=== PATIENT | female | born 1990 | race Caucasian/White ===

== ENCOUNTER 2024-01-27 16:02 | Emergency (ER) | payer OTHER, SELFPAY ==
--- NOTE | 2024-01-27 16:22 | ED.URI ---
HPI - URI/Sore Throat General Chief Complaint: Upper Respiratory Infection Stated Complaint: cough Time Seen by Provider: 01/27/24 16:22 Source: patient Mode of arrival: ambulatory Limitations: no limitations History of Present Illness HPI Narrative: 33-year-old female presents with cough for approximately 2 weeks. Patient reports chest pain only with coughing. Reports some shortness of breath with exertion but also reports 33 weeks so kind of normal for her to be winded when walking . Afebrile. Patient's OBGYN told her that she could take Mucinex and Sudafed. All systems reviewed and negative except as noted above. Related Data Home Medications Medication Instructions Recorded Confirmed aspirin 81 mg tablet,delayed 81 mg PO DAILY 02/16/21 02/16/21 release vits no.126-ferrous fum tablet PO DAILY 02/16/21 02/16/21 28 mg iron-folic acid 800 mcg tablet (Classic ) hydroxychloroquine 200 mg tablet mg PO 01/27/24 Allergies Allergy/AdvReac Type Severity Reaction Status Date / Time buspirone Allergy Unknown Weakness Verified 01/27/24 16:23 Sulfa (Sulfonamide Allergy Unknown unknown Verified 01/27/24 16:23 Antibiotics) Review of Systems Review of Systems: CONSTITUTIONAL: Denies fever, chills, or sweats. reports fatigue. EYES: Denies visual changes, redness, or discharge. ENT: Denies rhinorrhea, congestion, sore throat, or otalgia. CARDIOVASCULAR: Denies chest pain, palpitations, or edema. RESPIRATORY: Reports cough and dyspnea with exertion. GASTROINTESTINAL: Denies abdominal pain, nausea, vomiting, or diarrhea. GENITOURINARY: Denies dysuria or hematuria. SKIN: Denies rash or itching. MUSCULOSKELETAL: Denies back pain, joint pain, or myalgia. NEUROLOGIC: Denies headache, numbness, or weakness. PSYCHIATRIC: Denies anxiety or depression. All other systems reviewed are negative, except as documented in HPI. [facility] Family History Family History (Updated 07/15/14 @ 07:13 by DOCTOR UNKNOWN) Mother Depression Family history of osteoarthritis Family history of alcoholism Family history of chronic obstructive pulmonary disease Family history of attention deficit hyperactivity disorder (ADHD) Other Family history of malignant neoplasm Family history of migraine headaches Family history of thyroid disease Social History Social History Smoking status: Never smoker Second hand tobacco smoke exposure: No Smoking end date: 11/18/09 Alcohol intake: never Comments At time of signature, agree with nursing past medical, surgical, social and family history. There is no relevant family history pertinent to the presenting complaint. Exam Narrative: GENERAL: This is a well-nourished, well-developed patient, in no apparent distress. HEAD: normocephalic, atraumatic. EYES: PERRL. Sclera clear/white. Vision is grossly intact. EARS: External ears normal, auditory canals clear and without drainage, TMs normal without perforation. Hearing grossly intact. NOSE: External nose normal with no obvious nasal discharge, nares without redness, no rhinorrhea. THROAT: Mucous membranes moist, posterior pharynx clear. NECK: Neck supple, non-tender without lymphadenopathy, masses or thyromegaly. CARDIOVASCULAR: Regular rate and rhythm without murmurs, gallops, or rubs. RESPIRATORY: Decreased throughout all lung fraire. Breath sounds equal bilaterally. No wheezes, rales, or rhonchi. SKIN: warm, Dry, intact with no suspicious lesions or rash, good texture and turgor. NEURO: awake, alert, and oriented to person, place and time. There were no obvious focal neurologic abnormalities. EXTREMITIES: No joint tenderness, effusion, or edema noted. Course Course Level of Care: Express Care Visit Vital Signs Vital signs: Vital Signs Temperature 36.6 C 01/27/24 16:24 Pulse Rate 98 01/27/24 16:24 Respiratory Rate 16 01/27/24 16:24 Blood Pressure 135/71 01/16
[2024-01-27 16:24] VITALS: BP 135/71; PULSE 98; RESP 16; TEMP 36.6; O2SAT 98
== END 2024-01-27 16:41 | disposition home or self-care (01) ==
PROVIDERS: Emergency Provider Nurse Practitioner Family
DX: O99.513 Diseases of the respiratory system complicating pregnancy, third trimester (principal); Z3A.33 33 weeks gestation of pregnancy; J22 Unspecified acute lower respiratory infection; Z87.891 Personal history of nicotine dependence; Z79.82 Long term (current) use of aspirin
CPT/HCPCS: 99213; G0463